=== PATIENT | female | born 1975 | race Caucasian/White ===

== ENCOUNTER 2022-04-08 09:08 | Emergency (ER) | payer OTHER ==
--- OUTSIDE RECORDS SUMMARY | 2022-04-08 09:11 | XMS REPORT | Continuity of Care Document ---
:1975 Author Organization [facility] t Address [address] [place] [address] Care Team Providers Name Role Phone ELPIDIO Attending Clinician Unavailable ELPIDIO Admitting Clinician Unavailable Payers Payer Name Policy Type Policy Number Effective Date Expiration Date S ource Problems This patient has no known problems. Allergies, Adverse Reactions, Alerts Allergy Allergy Status Severity Reaction(s) Onset Inactive Treating Comm ents Source Name Type Date Date Clinician No Known DA Active U 2015-09 [facility]04 [facility] 00:00: e 00 [facility] NO KNOWN Drug Active [facility]ERG[facility] Class [facility] Medications This patient has no known medications. Procedures This patient has no known procedures. Encounters Start End Encounter Admission Attending Care Care Encounter Source Date/Time Date/Time Type Type Clinicians Facility Department ID 2021-12-15 Outpatient [facility] [id number] [place] 09:00:[id number] [facility] 2021-07-04 Emergency [facility] [id number] [facility] 12:54:46 [facility] 2022-04-05 2022-04-05 Outpatient MANAN RAMÍREZ [address] 00:00:00 00:00:00 HN [id number] da [facility] Outre h Program Results This patient has no known results.
--- NOTE | 2022-04-08 09:57 | RAD REPORT ---
EXAM DESCRIPTION: CR - Finger-Thumb Left - 04/08/2022 9:47 am CLINICAL HISTORY: Left ring finger COMPARISON: No comparisons FINDINGS: Soft tissue swelling affects the fourth finger. No acute fracture or dislocation.
[2022-04-08] MEDS ORDERED: LIDOCAINE 1% MPF 5 ML VIAL ONE (10:05)
--- NOTE | 2022-04-08 10:19 | EDPHYS ---
Physician Documentation [facility] Name: Mickie Costello Age: 46 yrs Sex: Female : 1975 Arrival Date: 04/08/2022 Time: 09:09 Bed 5 Private MD: Ceferino Joseph ED Physician Andrei Harding HPI: 04/08 10:14 This 46 yrs old Female presents to ER via Ambulatory with complaints of jl9 Finger Injury. Patient's L fourth finger got caught in between a ladder. . 10:14 Trauma demographics: Location of Injury: The injury occurred at work. Mechanism of jl9 injury: Crush injury:. Associated injuries: The patient sustained laceration, 3 cm(s), . Onset: The symptoms/episode began/occurred just prior to arrival. . 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 - Social history:: Smoking status: Patient reports the use of cigarette tobacco products, smokes one-half pack cigarettes per day. ROS: 10:15 Constitutional: Negative for fever, chills, and weight loss, Eyes: Negative for injury, jl9 pain, redness, and discharge, ENT: Negative for injury, pain, and discharge, Neck: Negative for injury, pain, and swelling, Cardiovascular: Negative for chest pain, palpitations, and edema, Respiratory: Negative for shortness of breath, cough, wheezing, and pleuritic chest pain, Abdomen/GI: Negative for abdominal pain, nausea, vomiting, diarrhea, and constipation, Back: Negative for injury and pain. 10:15 Neuro: Negative for headache, weakness, numbness, tingling, and seizure, Psych: Negative for depression, anxiety, suicide ideation, homicidal ideation, and hallucinations, Allergy/Immunology: Negative for hives, rash, and allergies, Endocrine: Negative for neck swelling, polydipsia, polyuria, polyphagia, and marked weight changes, Hematologic/Lymphatic: Negative for swollen nodes, abnormal bleeding, and unusual bruising. 10:15 MS/extremity: Positive for laceration, Left 4th finger. . Exam: 10:16 Constitutional: This is a well developed, well nourished patient who is awake, alert, jl9 and in no acute distress. Head/Face: Normocephalic, atraumatic. Eyes: Pupils equal round and reactive to light, extra-ocular motions intact. Lids and lashes normal. Conjunctiva and sclera are non-icteric and not injected. Cornea within normal limits. Periorbital areas with no swelling, redness, or edema. ENT: Mucous membranes moist. Neck: Trachea midline, no thyromegaly or masses palpated, and no cervical lymphadenopathy. Supple, full range of motion without nuchal rigidity, or vertebral point tenderness. No Meningismus. Chest/axilla: Normal chest wall appearance and motion. Nontender with no deformity. No lesions are appreciated. Cardiovascular: Regular rate and rhythm with a normal S1 and S2. No gallops, murmurs, or rubs. Normal PMI, no JVD. No pulse deficits. Respiratory: Lungs have equal breath sounds bilaterally, clear to auscultation and percussion. No rales, rhonchi or wheezes noted. No increased work of breathing, no retractions or nasal flaring. Abdomen/GI: Soft, non-tender, with normal bowel sounds. No distension or tympany. No guarding or rebound. No evidence of tenderness throughout. Back: No spinal tenderness. No costovertebral tenderness. Full range of motion. 10:16 Neuro: Awake and alert, GCS 15, oriented to person, place, time, and situation. Cranial nerves II-XII grossly intact. Motor strength 5/5 in all extremities. Sensory grossly intact. Cerebellar exam normal. Normal gait. Psych: Awake, alert, with orientation to person, place and time. Behavior, mood, and affect are within normal limits. 10:16 Musculoskeletal/extremity: 3cm laceration as noted. . 10:16 Skin: injury, Left 4th finger. . Vital Signs: 09:23 BP 132 / 77; Pulse 84; Resp 18; Temp 98.5; Pulse Ox 100% ; Weight 54.43 kg; Height 5 ap3 ft. 3 in. (160.02 cm); Pain 7/10; 09:23 Body Mass Index 21.26 (54.43 kg, 160.02 cm) ap3 Laceration: 10:11 Wound Repair of 3cm ( 1.2in ) subcutaneous laceration to left hand. Distal jl9 neuro/vascular/tendon intact. Anesthesia: Local anesthetic administered with 4 mls of 1% lidocaine. Wound prep: Simple cleansing, Wound irrigation. Skin closed with 5 5-0 Prolene using simple sutures and sterile technique. Dressed with Bacitracin. Patient tolerated well. MDM: 09:44 Patient medically screened. jl9 10:17 Data reviewed: vital signs, nurses notes, radiologic studies, plain films. 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 Exp: vg1 01/08/2024. Lot #: [id number]. } Route: IM; Site: left deltoid; 10:34 Follow up: Response: No adverse reaction vg1 Disposition: 10:36 Co-signature as Attending Physician, Andrei Harding MD I agree with the assessment and kdr plan of care. Disposition Summary: 04/08/22 10:18 Discharge Ordered Location: Home jl9 Condition: Stable jl9 Diagnosis - Crushing injury of left ring finger jl9 - Hand Laceration/ Open wound of hand jl9 Followup: jl9 - With: Private Physician - When: 5 - 6 days - Reason: Recheck today's complaints, Continuance of care, Re-evaluation by your physician Discharge Instructions: - Discharge Summary Sheet jl9 - Laceration Care, Adult, [id number] jl9 Forms: - Medication Reconciliation Form jl9 - Thank You Letter jl9 - Antibiotic Education jl9 - Work release form eb - Prescription Opioid Use jl9 Signatures: Dispatcher [employer] EDAndrei Cortes MD MD kdr Prokisch, Amanda RN RN ap3 Carley Conrad RN RN vg1 Alvino Serrano jl9
--- NOTE | 2022-04-08 10:19 | ER ---
Nurse's Notes [facility] Name: Mickie Costello Age: 46 yrs Sex: Female : 1975 Arrival Date: 04/08/2022 Time: 09:09 Bed 5 Private MD: Ceferino Joseph Diagnosis: Crushing injury of left ring finger;Hand Laceration/ Open wound of hand Presentation: 04/08 09:23 Chief complaint: Patient states: she was at work when she got her left ring finger ap3 caught between 2 pieces of metal. patient states she feels like she may have broken said finger. patient presents to the ED with injured finger wrapped in green electrical tape because she said it was bleeding, and the tape was all she had. Coronavirus screen: At this time, the client does not indicate any symptoms associated with coronavirus-19. Ebola Screen: No symptoms or risks identified at this time. Initial Sepsis Screen: Does the patient meet any 2 criteria? No. Patient's initial sepsis screen is negative. Does the patient have a suspected source of infection? No. Patient's initial sepsis screen is negative. Risk Assessment: Do you want to hurt yourself or someone else? Patient reports no desire to harm self or others. Onset of symptoms was April 08, 2022. 09:23 Method Of Arrival: Ambulatory ap3 09:23 Acuity: DIAMOND 4 ap3 Triage Assessment: 09:26 General: Appears uncomfortable, Behavior is calm, cooperative. Pain: Complains of pain ap3 in left ring finger Pain currently is 7 out of 10 on a pain scale. Pain began suddenly. Neuro: Level of Consciousness is awake, alert, obeys commands, Oriented to person, place, time, situation, Gait is steady, Speech is normal. Cardiovascular: Patient's skin is warm and dry. Respiratory: Airway is patent Respiratory effort is even, unlabored, Respiratory pattern is regular, symmetrical. Musculoskeletal: Range of motion: intact in DIP of left ring finger, PIP of left ring finger and MCP of left ring finger. Injury Description: Laceration sustained to left ring finger. 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 - Social history:: Smoking status: Patient reports the use of cigarette tobacco products, smokes one-half pack cigarettes per day. Screenin:28 Abuse screen: Denies threats or abuse. Nutritional screening: No deficits noted. ap3 Tuberculosis screening: No symptoms or risk factors identified. 09:53 Fall Risk No fall in past 12 months (0 pts). No secondary diagnosis (0 pts). No IV (0 vg1 pts). Ambulatory Aid- None/Bed Rest/Nurse Assist (0 pts). Gait- Normal/Bed Rest/Wheelchair (0 pts) Mental Status- Oriented to own ability (0 pts). Total Weiss Fall Scale indicates No Risk (0-24 pts). Assessment: 09:51 General: Appears in no apparent distress. uncomfortable, Behavior is calm, cooperative. vg1 Pain: Complains of pain in left ring finger Pain currently is 7 out of 10 on a pain scale. Pain began 1 hour ago. Neuro: Level of Consciousness is awake, alert, obeys commands, Oriented to person, place, time, situation. Cardiovascular: Capillary refill is > 3 seconds in left ring finger. Respiratory: Airway is patent Respiratory effort is even, unlabored. GI: No signs and/or symptoms were reported involving the gastrointestinal system. : No signs and/or symptoms were reported regarding the genitourinary system. EENT: No signs and/or symptoms were reported regarding the EENT system. Derm: Skin is pink, warm \T\ dry. Musculoskeletal: Swelling present in left ring finger. Vital Signs: 09:23 BP 132 / 77; Pulse 84; Resp 18; Temp 98.5; Pulse Ox 100% ; Weight 54.43 kg; Height 5 ap3 ft. 3 in. (160.02 cm); Pain 7/10; 09:23 Body Mass Index 21.26 (54.43 kg, 160.02 cm) ap3 ED Course: 09:09 Patient arrived in ED. am2 09:09 Ceferino Joseph MD is Private Physician. am2 09:13 [facility] jl9 09:13 Andrei Harding MD is Attending Physician. jl9 09:25 Triage completed. ap3 09:28 Arm band placed on right wrist. ap3 09:38 Carley Conrad, RN is Primary Nurse. vg1 09:48 XRAY Finger-Thumb Left In Process Unspecified. EDMS 09:53 Patient has correct armband on for positive identification. Bed in low position. Call vg1 light in reach. Side rails up X 1. 10:34 No provider procedures requiring assistance completed. Patient did not have IV access vg1 during this emergency room visit. 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 Exp: vg1 01/08/2024. Lot #: [id number]. } Route: IM; Site: left deltoid; 10:34 Follow up: Response: No adverse reaction vg1 Medication: 10:34 Vaccine Information Statement (VIS) provided today. Questions and/or concerns vg1 addressed. VIS edition date: April 09, 2021. Outcome: 10:18 Discharge ordered by . erum 10:35 Discharged to home ambulatory. vg1 10:35 Condition: good 10:35 Discharge instructions given to patient, Instructed on discharge instructions, follow up and referral plans. wound care, Demonstrated understanding of instructions, follow-up care, wound care. 10:36 Patient left the ED. vg1 Signatures: Dispatcher [employer] EDMS Bailey Mederos Amanda, RN RN ap3 Carley Conrad, RN RN [email or web address] Alvino Serrano
[2022-04-08] MEDS ORDERED: TETANUS & DIPHTHERIA TOX,ADULT 0.5 ML VIAL ONE (10:27)
[2022-04-08 10:43] VITALS: BP 132/77; TEMP 98.5; O2SAT 100
== END 2022-04-08 10:36 | disposition home or self-care (01) ==
LOC: ER 09:08
PROC: 0JQK0ZZ Repair Left Hand Subcutaneous Tissue and Fascia, Open Approach (ICD-10-PCS; principal; 2022-04-08)
DX: S67.195A Crushing injury of left ring finger, initial encounter (principal); S61.412A Laceration without foreign body of left hand, initial encounter; F17.210 Nicotine dependence, cigarettes, uncomplicated; Z23 Encounter for immunization
CPT/HCPCS: 90471; 90714; 99283